=== PATIENT | female | born 1985 | race Caucasian/White ===

== ENCOUNTER 2016-11-12 11:26 | Emergency (ER) | payer OTHER ==
[~2016-11-12] VITALS: Ht 152.4 cm; Wt 59.0 kg
--- NOTE | 2016-11-12 12:36 | ED GENERAL ADULT ---
History of Present Illness General Chief Complaint: General Adult Stated Complaint: TO ER FOR EVALUATION OF BENZO USE Source: patient, [facility] Exam Limitations: no limitations Vital Signs & Intake/Output Vital Signs & Intake/Output Vital Signs Date Time Temp Pulse Resp B/P B/P Pulse O2 O2 Flow FiO2 Mean Ox Delivery Rate 11/12 1300 98.2 95 20 124/86 11/12 1300 98.2 95 20 124/86 98 Room Air 11/12 1143 97.6 100 16 128/89 98 Room Air Allergies Coded Allergies: No Known Allergies (11/12/16) Triage Note: 31 Y/O FEMALE STATES SHE IS TRYING TO GET [facility] HOWEVER SHE IS ON ATIVAN DAILY (1MG TWICE A DAY AND 0.5MG AT NIGHT) AND SHE NEEDS TO BE WEANED OFF THAT MEDICATION PRIOR TO BEING ALLOWED INTO THEIR PROGRAM. CALM AND COOPERATIVE Triage Nurses Notes Reviewed? yes Onset: Abrupt Duration: day(s): (1) Timing: single episode today Severity: mild, moderate No Modifying Factors: none LMP (ages 10-50): unknown : No Patient currently breastfeeds: No HPI: 31-year-old female with past medical history of alcohol abuse presents for evaluation of benzodiazepine use. Patient states she trying to get [facility]. She has been taking Ativan 3 mg daily for the past year. 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 Is prescribed by a resident at [facility]. She started getting [facility] but states that they will not accept her because she is using benzodiazepines. She states she does not abuse the medication takes as directed. She is unsure if she is able to stop this medication or if his condition to take the rest of her life. She states her last drink was approximately one week ago and it was the only time she drank the last 3 months. She denies any history of seizures related to alcohol abuse. She currently feels well and has no concerns. (CAIO LÓPEZ PA-C) Past History Travel History Traveled to [place] past 21 day No Medical History Any Pertinent Medical History? see below for history Neurological: NONE EENT: NONE Cardiovascular: NONE Respiratory: NONE Gastrointestinal: NONE Hepatic: NONE Renal: NONE Musculoskeletal: NONE Psychiatric: bipolar disease, depression Endocrine: NONE Blood Disorders: NONE Cancer(s): NONE WASTE MANAGEMENT RECYCLING TECHNICIAN/Reproductive: NONE Surgical History Surgical History: none Psychosocial History What is your primary language Samoan Tobacco Use: Current Daily Use Daily Tobacco Use Amount/Type: => 5 Cigarettes daily Family History Hx Contributory? No (CAIO LÓPEZ PA-C) Review of Systems Review of Systems Constitutional: Reports: no symptoms. EENTM: Reports: no symptoms. Respiratory: Reports: no symptoms. Cardiovascular: Reports: no symptoms. GI: Reports: no symptoms. Genitourinary: Reports: no symptoms. Musculoskeletal: Reports: no symptoms. Skin: Reports: no symptoms. Neurological/Psychological: Reports: no symptoms. Hematologic/Endocrine: Reports: no symptoms. Immunologic/Allergic: Reports: no symptoms. All Other Systems: Reviewed and Negative (CAIO LÓPEZ PA-C) Physical Exam Physical Exam General Appearance: well developed/nourished, no apparent distress, alert, awake , comfortable Comments: General: Hemodynamically stable. Afebrile. Well-developed well-nourished person in no acute distress. Head: Atraumatic, normocephalic Eyes: EOMI bilaterally, PERRLA, conjunctiva are not injected, no discharge, no nystagmus, fundus grossly normal bilaterally Nose: Atraumatic, no rhinorrhea, mucosa is not erythematous, no epistaxis. Sinuses are non-tender Ears: TM pearly song color bilaterally, external canal is clear, no discharge, hearing is normal Mouth: Appropriate dentition, no gingival bleeding, moist mucus membranes, no oral lesions, tonsils not erythematous or enlarged and free of exudate. Uvula rises midline. Neck: Supple, full active ROM, no lymphadenopathy, no midline tenderness to palpation, no thyromegaly, no tracheal deviation. Back: Non-tender, full active ROM, no scoliosis, no CVA tenderness Cardiovascular: regular rate and rhythm, no murmurs, rubs, or gallops. No JVD Respiratory: Chest is nontender. Regular respiratory rate and effort. No accessory muscle use. Lungs clear to auscultation bilaterally. Abdomen: Soft, non-tender, non-distended, no organomegaly. No rebound tenderness or guarding. Normoactive bowel sounds. Extremities: No edema. No gross deformities. No joint swelling. No calf swelling or tenderness. Full active and passive ROM. Strength 5/5 in upper and lower extremities. Peripheral pulses 2+ bilaterally, Patellar DTR 2+ Neuro: No confusion. Motor and sensory function is intact. Appropriate gait. Cerebellar function intact. Skin: Warm and dry. Appropriate turgor. No lesions or bruising. No appreciable rash on exposed skin. Core Measures ACS in differential dx? No CVA/TIA Diagnosis: No Severe Sepsis Present: No Septic Shock Present: No (CAIO LÓPEZ PA-C) Progress Differential Diagnoses I considered the following diagnoses in my evaluation of the patient: [Alcohol intoxication, benzodiazepine intoxication, drug withdrawal, electrolyte abnormality, anxiety, seizure disorder,] Plan of Care: Orders Procedure Date/time Status URINE 11/12 1208 Complete URINE DRUG SCREEN FOR ER ONLY 11/12 1208 Complete Laboratory Tests 11/12/16 1210: Urine Opiates Screen < 100.00, Methadone Screen < 40, Barbiturate Screen < 60, Ur Phencyclidine Scrn < 6.00, Amphetamines Screen < 100, U Benzodiazepines Scrn < 85, Urine Cocaine Screen < 50, Urine Cannabis Screen < 5.00, Urine Test NEGATIVE Patient seen and evaluated. Patient is taking Ativan for a medical reason. She had a catatonic episode approximately one year ago and has been on benzos ever since. [facility] not accept patients on benzodiazepines. It is not clear whether patient can have her benzo stopped at this point. Advised patient that she needs to talk to her the prescribing physician to determine if stopping the Ativan is possible. If it is she can go to a detox facility and then go to [facility] afterwards. Patient will be provided with a list of detox facilities. Case discussed with Dr. Dangelo he agrees the plan. (CAIO LÓPEZ PA-C) Initial ED EKG: none (CAIO LÓPEZ PA-C) Departure Departure Disposition: HOME OR SELF CARE Condition: Stable Clinical Impression Primary Impression: Benzodiazepine dependence Referrals: UNKNOWN (PCP/Family) Additional Instructions: Contact the physician that prescribed your Ativan and find out if is possible view to come off of it. If it is see the attached detox facilities in the attached list. If not you need to find a different inpatient rehabilitation facility that will accept patients that are taking benzodiazepines. Return to the emergency department with any concerns. Departure Forms: Customer Survey General Discharge Information (CAIO LÓPEZ PA-C) PA/BREWING TECHNICIAN Co-Sign Statement Statement: ED Attending supervision documentation- I saw and evaluated the patient. I have also reviewed all the pertinent lab results and diagnostic results. I agree with the findings and the plan of care as documented in the PA's/BREWING TECHNICIAN's documentation. x I have reviewed the ED Record and agree with the PA's/BREWING TECHNICIAN's documentation. [] Additions or exceptions (if any) to the PAs/BREWING TECHNICIAN's note and plan are summarized below: [] (DELBERT VENTURA,JOSEFINA) Critical Care Note Critical Care Note Critical Care Time: non-applicable (RENE BONILLA,CAIO)
== END 2016-11-12 13:41 ==
LOC: ERH 11:26
DX: F13.20 Sedative, hypnotic or anxiolytic dependence, uncomplicated (principal)
CPT/HCPCS: 80307; 81025